=== PATIENT | female | born 1975 | race Caucasian/White ===

== ENCOUNTER → 2021-06-13 12:07 | Outpatient (CLI) | payer BC, SELFPAY ==
--- NOTE | 2021-06-13 13:18 | CA_ITS ---
APPROVED REPORT EXAM: Comprehensive 2D, Doppler, and color-flow Echocardiogram Licensed Dispensing Optician: ZAHIRA Baig, RVS Ht: 5 ft 2 in Wt: 178lbs BSA: 1.82 BP: 147/95 mmHg Indications: SOA, HTN, kidney disease, Hx-COVID 19 2D Dimensions Aortic Root 2.78 cm LA Volume 68.70 mL Left Atrium 3.42 cm LA Volume Index 37.70 mL/m2 (M/F) 16-34 LVOT 1.90 cm (M/F) 1.5-2.5 M-Mode Dimensions LA Diam 3.95 cm (1.9-4.0) LVDd 4.18 cm (3.5-5.7) Ao Diam 2.58 cm (2.0-3.7) LVDs 3.02 cm (3.5-5.7) EF (Teich) 54.20% EPSs 0.39 cm FS 27.80% EDV (Teich) 77.70 mL TAPSE 2.67 (<1.7) ESV (Teich) 35.60 mL LV Diastology E Decel Time 240.00 (160-240 msec) E/A Ratio 1.03 MED E' 6.20 (< 7 cm/sec) MED A' 11.10 cm/s E'/MED E' Ratio 15.35 (>14) LAT E' 8.60 (<10 cm/sec) LAT A' 11.60 cm/s E/LAT E' Ratio 11.07 (>14) Aortic Valve LVOT Max 129.00 (70-110 cm/s) LVOT VTI 27.65 cm AoV Peak Nelson. 157.00 (50-130 cm/s) AO Peak GR. 9.80 mmHg AO Mean GR. 5.50 (<5 mmHg) AO VTI 34.55 (18-25 cm) ANGELA (VTI) 2.27 (2.5-4.5 cm2) Mitral Valve MV A Velocity 92.00 (40-130 cm/s) E/A Ratio 1.03 MV Decel. Time 240.00 (160-240 ms) MV Mean Gr. 2.40 (<2mmHg) Pulmonary Valve PV Peak Velocity 61.00 (50-150 cm/s) Tricuspid Valve TR P. Velocity 240.00 cm/s RAP Estimate 10.00 mmHg RVSP 33.00 mmHg Left Ventricle Left atrium is mildly enlarged, left ventricle is normal size, mild concentric left ventricular hypertrophy, visually estimated ejection fraction 55% with no regional wall motion abnormality, grade 1 diastolic dysfunction seen without tissue Doppler evidence of raise left atrial pressure. Right Ventricle Right atrium and right ventricle are normal size and contractility. Aortic Valve Aortic valve is minimally thickened and fibrosed, there is no aortic stenosis or aortic insufficiency. Mitral Valve Mitral valve is grossly normal, there is trace mitral regurgitation. Tricuspid Valve Tricuspid valve grossly normal, there is trace tricuspid regurgitation, tricuspid regurgitation jet velocity is inadequate for calculation of the right ventricular systolic pressure. Pulmonic Valve Pulmonic valve is poorly visualized. Great Vessels Aortic root is normal size. Inferior vena cava is normal size with normal inspiratory collapse. Pericardium No significant pericardial effusion noted. Conclusion 1. Mildly enlarged left atrium, normal left ventricular size, mild concentric left ventricular hypertrophy, visually estimated ejection fraction 55% with no regional wall motion abnormality, grade 1 diastolic dysfunction seen without tissue Doppler evidence of raised left atrial pressure. 2. Trace mitral and tricuspid regurgitation. 3. No significant pericardial effusion noted. 4. Inferior vena cava normal size with normal inspiratory collapse. Electronically signed by : aJvan Raymundo MD 06/14/2021 13:01:39
[2021-06-13 13:35] LABS: Basophils # 0.1 K/mm3 (0-0.2); Basophils % 1.4 % (0.1-2.0); Eosinophils # 0.1 K/mm3 (0.0-0.4); Eosinophils % 1.3 % (0.1-12.0); Hematocrit 44.5 % (37.0-47.0); Lymphocytes # 2.6 K/mm3 (0.7-4.5); Lymphocytes % 25.4 % (10-50); Mean Corpuscular HGB Conc 33.7 g/dL (31.8-35.4); Mean Corpuscular Hemoglobin 29.9 pg (27.0-31.2); Mean Corpuscular Volume 88.7 fl (81-99); Mean Platelet Volume 9.3 fl (7.4-10.4); Monocytes # 0.4 K/mm3 (0.1-1.0); Monocytes % 4.2 % (1.7-9.3); Neutrophils % 67.7 % (37.0-80.0); Platelet Count 328 K/mm3 (142-424); Red Blood Count 5.02 M/mm3 (4.20-5.40); Red Cell Distribution Width 13.3 % (11.5-17.5); White Blood Count 10.3 K/mm3 (4.8-10.8)
[2021-06-13 13:43] LABS: Alanine Aminotransferase 21 U/L (12-78); Albumin Level 4.8 g/dl (3.5-5.0); Alkaline Phosphatase 112 U/L (38-126); Anion Gap 11.1 mEq/L (5-15); Aspartate Amino Transferase 26 U/L (14-36); Bilirubin,Direct 0.1 mg/dl (0.0-0.4); Bilirubin,Indirect 0.9 mg/dL (0.0-0.9); Bilirubin,Unconjugated 0.9 mg/dL (0.0-1.1); Blood Urea Nitrogen 10 mg/dl (7-17); Calcium 9.5 mg/dl (8.4-10.2); Carbon Dioxide 29 mmol/L (22.0-30.0); Chloride 102 mmol/L (98-107); Cholesterol 305 mg/dl (140-200); Estimated Glomerular Filt Rate 132 ml/min (>60); GFR (African American) 159 ML/MIN (>60); Glucose 98 mg/dl (74-100); HDL Cholesterol 34 mg/dl (40-60); Potassium 3.1 mmoL/L (3.5-5.1); Sodium 139 mmol/L (136-145); Total Protein,Serum 7.2 g/dl (6.3-8.2)
[2021-06-13 13:46] LABS: Triglycerides 484 mg/dl (30-150)
[2021-06-13 13:54] LABS: Direct LDL Cholesterol 177.03 mg/dL (100-129)
[2021-06-13 14:00] LABS: Free T4 (Free Thyroxine) 0.82 ng/dl (0.78-2.19)
[2021-06-13 14:16] LABS: Thyroid Stimulating Hormone 1.83 uIU/mL (0.465-4.68)
== END ==
PROVIDERS: PCP General Practice; Visit Provider Internal Medicine
DX: I10 Essential (primary) hypertension (principal); I15.0 Renovascular hypertension
CPT/HCPCS: 36415; 80048; 80061; 80076; 84439; 84443; 85025; 93306

== ENCOUNTER → 2022-11-13 14:25 | Outpatient (CLI) | payer BC, SELFPAY ==
[2022-11-13 15:38] LABS: Alanine Aminotransferase 24 U/L (12-78); Albumin Level 4.5 g/dl (3.5-5.0); Alkaline Phosphatase 105 U/L (38-126); Aspartate Amino Transferase 31 U/L (14-36); Bilirubin,Unconjugated 1.2 mg/dL (0.0-1.1); Chol/HDL Ratio 5.9 (1-3.5); Cholesterol 234 mg/dl (140-200); HDL Cholesterol 40 mg/dl (40-60)
[2022-11-13 15:45] LABS: Triglycerides 465 mg/dl (30-150)
[2022-11-13 15:49] LABS: Direct LDL Cholesterol 104.68 mg/dL (100-129)
== END ==
PROVIDERS: PCP General Practice; Visit Provider Nurse Practitioner
DX: E78.5 Hyperlipidemia, unspecified (principal); I11.9 Hypertensive heart disease without heart failure; R94.31 Abnormal electrocardiogram [ECG] [EKG]
CPT/HCPCS: 36415; 80061; 80076

== ENCOUNTER → 2022-11-26 09:23 | Outpatient (CLI) | payer BC, SELFPAY ==
--- NOTE | 2022-11-26 09:29 | US_ITS ---
FINAL REPORT CLINICAL HISTORY: elevated bilirubin. suspect statin induced liver COMPARISON: None FINDINGS: Sonographic images of the right upper quadrant were obtained. The pancreas is partially obscured. The liver is fatty infiltrated. The gallbladder appears normal without evidence of gallstones.There is no evidence of biliary ductal dilatation.The common duct measures 2 mm. There is a 1.2 cm probable right renal parapelvic cyst. There is a questionable small right renal stone. IMPRESSION: Fatty liver. 1.2 cm probable right renal parapelvic cyst. Questionable small right renal stone. Reviewed, Interpreted and Dictated by Reymundo Hartley III, MD Transcribed by Payton Hastings Authenticated and . [facility]
== END ==
LOC: RAD 09:26
PROVIDERS: PCP General Practice; Visit Provider Physician Assistant
DX: R17 Unspecified jaundice (principal); E78.5 Hyperlipidemia, unspecified
CPT/HCPCS: 76705

== ENCOUNTER → 2023-03-30 14:15 | Outpatient (CLI) | payer BC, SELFPAY ==
[2023-03-30 14:20] LABS: Microscopic, Urine URINE MICROSCOPIC (MICROSCOPIC)
[2023-03-30 15:03] LABS: Basophils # 0.1 K/mm3 (0-0.2); Basophils % 0.6 % (0.1-2.0); Eosinophils # 0.1 K/mm3 (0.0-0.4); Eosinophils % 1.2 % (0.1-12.0); Hemoglobin 14.4 g/dL (12.2-16.2); Lymphocytes # 3.2 K/mm3 (0.7-4.5); Lymphocytes % 28.6 % (10-50); Mean Corpuscular HGB Conc 36.1 g/dL (31.8-35.4); Mean Corpuscular Hemoglobin 30.5 pg (27.0-31.2); Mean Corpuscular Volume 84.5 fl (81-99); Mean Platelet Volume 7.7 fl (7.4-10.4); Monocytes # 0.5 K/mm3 (0.1-1.0); Monocytes % 4.1 % (1.7-9.3); Neutrophils # 7.4 K/mm3 (1.8-7.8); Neutrophils % 65.5 % (37.0-80.0); Platelet Count 309 K/mm3 (142-424); Red Blood Count 4.73 M/mm3 (4.20-5.40); Red Cell Distribution Width 13.5 % (11.5-17.5); White Blood Count 11.3 K/mm3 (4.8-10.8)
[2023-03-30 15:38] LABS: Appearance,Urine CLEAR (Clear); Bilirubin,Urine Negative (Negative); Blood, Urine TRACE-I (Negative); Color,Urine YELLOW (Yellow); Glucose,Urine (UA) Negative (Negative); Ketones,Urine Negative (Negative); Leukocyte Esterase,Urine TRACE (Negative); Nitrate,Urine Negative (Negative); PH,Urine 6.5 (5.0-8.5); Protein,Urine Negative (Negative); Specific Gravity, Urine 1.015 (1.005-1.030); Urobilinogen,Urine 0.2 EU/dl (0.2)
[2023-03-30 15:39] LABS: Albumin Level 4.5 g/dl (3.5-5.0); Blood Urea Nitrogen 15 mg/dl (7-17); Calcium 9.6 mg/dl (8.4-10.2); Carbon Dioxide 29 mmol/L (22.0-30.0); Chloride 100 mmol/L (98-107); Estimated Glomerular Filt Rate 89 ml/min (>60); GFR (African American) 108 ML/MIN (>60); Glucose 85 mg/dl (74-100); Phosphorous 3.9 mg/dl (2.5-4.5); Sodium 141 mmol/L (136-145)
[2023-03-30 15:46] LABS: Intact Parathyroid Hormone 107.1 pg/mL (7.5-53.5)
[2023-03-30 15:49] LABS: Squamous Epithelial Cell,Urine Occasional #/hpf (0-5); WBC,Urine Occasional #/hpf (0-3)
[2023-03-30 15:53] LABS: 25-OH Vitamin D, Total 20.7 ng/mL (30-100)
[2023-03-30 16:28] LABS: Creatinine,Urine Random 152 mg/dL (Not Estab.)
== END ==
PROVIDERS: PCP General Practice; Visit Provider Internal Medicine Nephrology
DX: N28.1 Cyst of kidney, acquired (principal); E55.9 Vitamin D deficiency, unspecified
CPT/HCPCS: 36415; 80069; 81001; 82306; 82570; 83970; 84155; 85025

== ENCOUNTER 2023-07-14 11:25 | Outpatient (CLI) | payer BC, SELFPAY ==
[2023-07-14 12:42] LABS: Magnesium 2.2 mg/dl (1.6-2.3)
[2023-07-17 11:59] LABS: Chloride 108 mmol/L (98-107); Sodium 143 mmol/L (136-145)
[2023-07-17 12:01] LABS: Bilirubin,Unconjugated 1.4 mg/dL (0.0-1.1); Blood Urea Nitrogen 14 mg/dl (7-17); Estimated Glomerular Filt Rate 106 ml/min (>60); GFR (African American) 128 ML/MIN (>60)
[2023-07-17 12:02] LABS: Alanine Aminotransferase 22 U/L (12-78); Albumin Level 4.5 g/dl (3.5-5.0); Alkaline Phosphatase 117 U/L (38-126); Aspartate Amino Transferase 30 U/L (14-36); Bilirubin,Direct 0.1 mg/dl (0.0-0.4); Bilirubin,Indirect 1.4 mg/dL (0.0-0.9); Bilirubin,Total 1.5 mg/dl (0.2-1.3); Calcium 9.7 mg/dl (8.4-10.2); Carbon Dioxide 30 mmol/L (22.0-30.0); Chol/HDL Ratio 7.6 (1-3.5); Cholesterol 236 mg/dl (140-200); Glucose 91 mg/dl (74-100); HDL Cholesterol 31 mg/dl (40-60); Triglycerides 273 mg/dl (30-150); VLDL Cholesterol 55 mg/dL (0-40)
[2023-07-17 12:31] LABS: Thyroid Stimulating Hormone 1.19 uIU/mL (0.465-4.68)
[2023-07-17 13:05] LABS: Free T4 (Free Thyroxine) 1.09 ng/dl (0.78-2.19)
[2023-07-17 16:21] LABS: Direct LDL Cholesterol 133.11 mg/dL (100-129)
== END 2023-07-14 23:59 ==
LOC: LAB 11:26
PROVIDERS: Physician Assistant; PCP General Practice; Visit Provider Physician Assistant
DX: R06.09 Other forms of dyspnea (principal); R06.00 Dyspnea, unspecified; R94.31 Abnormal electrocardiogram [ECG] [EKG]; I11.9 Hypertensive heart disease without heart failure; N28.1 Cyst of kidney, acquired; E78.5 Hyperlipidemia, unspecified; R17 Unspecified jaundice; R60.9 Edema, unspecified
CPT/HCPCS: 36415; 80048; 80061; 80076; 83735; 84439; 84443

== ENCOUNTER 2023-07-27 11:52 | Outpatient (CLI) | payer BC, SELFPAY ==
--- NOTE | 2023-07-27 11:55 | CA_ITS ---
APPROVED REPORT EXAM: Comprehensive 2D, Doppler, and color-flow Echocardiogram Oyster Culturist: Yuni Hodge RT(R) Ht: 5 ft 2 in Wt: 182lbs BSA: 1.84 BP: 106/74 mmHg Indications: abn EKG, HTN, hyperlipidemia, FITZPATRICK 2D Dimensions Left Atrium 3.13 cm F: 2.7 - 3.8 LVEF (So's) 46.80 % F: 54 - 74 LVOT 2.06 cm (M/F) 1.5-2.5 LV Volume 93.60 mL F: 46 - 106 LV Volume Index 50.9 mL/m2 F: 29 - 61 LA Volume 33.10 mL LA Volume Index 17.99 mL/m2 (M/F) 16-34 EF AP4 52.30 % EF AP2 37.1 % EF BP 46.8 % GL Strain -15.8 % M-Mode Dimensions RVDd 2.96 cm (0.9-2.6) LVDd 3.87 cm (3.5-5.7) Ao Diam 2.59 cm (2.0-3.7) LVDs 2.69 cm (3.5-5.7) IVSd 0.91 cm (0.6-1.1) PWd 0.76 cm (0.6-1.1) EF (Teich) 58.60% FS 30.50% EDV (Teich) 64.70 mL ESV (Teich) 26.80 mL LV Diastology E Decel Time 228 (160-240 msec) E/A Ratio 0.9 MED E' 9.8 (>= 7 cm/sec) E'/MED E' Ratio 8.28 (<= 14) LAT E' 8.8 (>= 10 cm/sec) E/LAT E' Ratio 9.22 (<= 14) Mitral Valve MV E Max Nelson. 81.0 (40-130 cm/s) MV A Velocity 88.0 (40-130 cm/s) E/A Ratio 0.92 MV Decel. Time 228 (160-240 ms) Left Ventricle The left ventricle is normal size. The left ventricular systolic function is normal. The left ventricular ejection fraction is within the normal range. There is normal left ventricular wall thickness. There is normal LV segmental wall motion. The left ventricular diastolic function is normal. LVEF is 60%. Right Ventricle The right ventricle is normal size. The right ventricular systolic function is normal. Atria The left atrium size is normal. The right atrium size is normal. There is no Doppler evidence of interatrial shunt. Aortic Valve The aortic valve is normal in structure. There is no aortic valvular stenosis. No aortic regurgitation is present. Mitral Valve The mitral valve is normal in structure. No evidence of mitral valve stenosis. Trace mitral regurgitation. Tricuspid Valve The tricuspid valve leaflets are thin and pliable. Trace tricuspid regurgitation. RVSP is normal. Pulmonic Valve The pulmonary valve is normal in structure. Trace pulmonic regurgitation. Great Vessels The aortic root is normal in size. The ascending aorta is normal in size. IVC is normal in size and collapses >50% with inspiration. Pericardium There is no pericardial effusion. Electronically signed by : Sarah Beth Cruz MD 07/29/2023 21:55:08
[2023-07-27 13:08] LABS: Anion Gap 14.9 mEq/L (5-15); Blood Urea Nitrogen 20 mg/dl (7-17); Carbon Dioxide 26 mmol/L (22.0-30.0); Chloride 103 mmol/L (98-107); Estimated Glomerular Filt Rate 76 ml/min (>60); GFR (African American) 92 ML/MIN (>60); Glucose 97 mg/dl (74-100); Sodium 141 mmol/L (136-145)
[2023-07-27 13:15] LABS: Potassium 2.9 mmoL/L (3.5-5.1)
== END 2023-07-27 23:59 ==
PROVIDERS: Physician Assistant; PCP General Practice; Visit Provider Physician Assistant
DX: R94.31 Abnormal electrocardiogram [ECG] [EKG] (principal); R06.00 Dyspnea, unspecified; E78.5 Hyperlipidemia, unspecified; I11.9 Hypertensive heart disease without heart failure; N28.1 Cyst of kidney, acquired; E87.6 Hypokalemia
CPT/HCPCS: 36415; 80048; 83735; 93306

== ENCOUNTER 2023-08-12 09:25 | Outpatient (CLI) | payer BC, SELFPAY ==
[2023-08-12 12:46] LABS: Chloride 103 mmol/L (98-107); Sodium 140 mmol/L (136-145)
[2023-08-12 12:47] LABS: Potassium 3.4 mmoL/L (3.5-5.1)
[2023-08-12 12:49] LABS: Blood Urea Nitrogen 14 mg/dl (7-17); Estimated Glomerular Filt Rate 106 ml/min (>60); GFR (African American) 128 ML/MIN (>60)
[2023-08-12 12:50] LABS: Anion Gap 11.4 mEq/L (5-15); Calcium 9.6 mg/dl (8.4-10.2); Carbon Dioxide 29 mmol/L (22.0-30.0); Glucose 93 mg/dl (74-100)
== END 2023-08-12 23:59 ==
LOC: LAB 09:26
PROVIDERS: Visit Provider Physician Assistant
DX: E87.6 Hypokalemia (principal)
CPT/HCPCS: 36415; 80048